=== PATIENT | female | born 1945 | race Caucasian/White ===

== ENCOUNTER 2020-08-15 10:07 | Outpatient (CLI) | payer MEDICARE, BC, SELFPAY ==
--- NOTE | ~2020-08-15 | US_ITS ---
EXAMINATION: US carotid duplex BI DATE: 08/15/2020 11:09 INDICATION: Carotid atherosclerosis and stenosis TECHNIQUE: Grayscale, color Doppler, and pulsed Doppler images of the cervical carotid arteries were obtained. The degree of vessel stenosis is placed in one of the following categories: normal, <50%, 5 0-69%, >=70% but less than near-occlusion, near-occlusion, or total occlusion. Note that percent sten osis relative to normal distal artery lumen diameter is indirectly measured from velocity measurement s as described by Gonzalez, et al. Radiology 2003; [id number]:340-346. COMPARISON: 08/12/2019 FINDINGS: RIGHT: The right common carotid artery (CCA) peak systolic velocity (PSV) is 74 cm/s. The right internal car otid artery (ICA) PSV is 216 cm/s. The right ICA end-diastolic velocity (EDV) is 55 cm/s. The right I CA/CCA PSV ratio is 2.9. Grayscale and color Doppler images yield an estimate of 50-69% diameter redu ction from plaque in the ICA. The external carotid artery (ECA) PSV is 137 cm/s. There is antegrade f low in the right vertebral artery. LEFT: The left CCA PSV is 77 cm/s. The left ICA PSV is 271 cm/s. The left ICA EDV is 73 cm/s. The left ICA/ CCA PSV ratio is 3.5. Grayscale and color Doppler images yield an estimate of >=70% (but less than ne ar occlusion) diameter reduction from plaque in the ICA. The ECA PSV is 139 cm/s. There is antegrade flow in the left vertebral artery. IMPRESSION: 1. 50-69% stenosis in the right internal carotid artery. 2. >=70% (but less than near occlusion) stenosis in the left internal carotid artery. Reviewed, dictated and finalized at location A. [employer] IMPRESSION: 1. 50-69% stenosis in the right internal carotid artery. 2. >=70% (but less than near occlusion) stenosis in the left internal carotid a rtery.
== END 2020-08-15 10:08 | disposition home or self-care (01) ==
LOC: ANHIMG 10:09
PROVIDERS: PCP Nurse Practitioner Family; Visit Provider Internal Medicine Cardiovascular Disease
DX: I65.23 Occlusion and stenosis of bilateral carotid arteries (principal)
CPT/HCPCS: 93880

== ENCOUNTER 2020-11-09 09:54 | Outpatient (CLI) | payer MEDICARE, BC, SELFPAY | END 2020-11-09 09:55 | disposition home or self-care (01) | LOC: ANHCOVIDVC 09:54 | PROVIDERS: PCP Nurse Practitioner Family | DX: Z23 Encounter for immunization (principal) | CPT/HCPCS: 0001A; 91300 ==

== ENCOUNTER 2020-11-30 09:43 | Outpatient (CLI) | payer MEDICARE, BC, SELFPAY | END 2020-11-30 09:44 | disposition home or self-care (01) | LOC: ANHCOVIDVC 09:43 | PROVIDERS: PCP Nurse Practitioner Family | DX: Z23 Encounter for immunization (principal) | CPT/HCPCS: 0002A; 91300 ==

== ENCOUNTER 2022-05-28 08:33 | Outpatient (CLI) | payer MEDICARE, BC, SELFPAY ==
[2022-05-28 20:31] LABS: Basophils Absolute Auto 0.1 K/mm3 (0.0-0.1); Basophils Percent Auto 0.9 % (0.2-1.2); Eosinophils Absolute Auto 0.5 K/mm3 (0-0.3); Hemoglobin 15.3 g/dL (12.0-15.0); Immature Granulocyte Absolute 0.04 K/mm3 (0.00-0.031); Immature Granulocyte Percent A 0.4 % (0-0.5); Lymphocytes Absolute Auto 2.95 K/mm3 (0.9-3.2); Lymphocytes Percent Auto 32.9 % (18.3-44.2); Mean Corpuscular HGB Conc 33.3 g/dl (32-36); Mean Corpuscular Hemoglobin 32.8 pg (26-34); Mean Corpuscular Volume 98.7 fl (80-100); Mean Platelet Volume 10.2 fl (7.4-10.4); Monocytes Absolute Auto 0.6 K/mm3 (0.1-0.6); Monocytes Percent Auto 6.1 % (2.6-8.5); Neutrophils Absolute Auto 4.8 K/mm3 (1.3-6.7); Neutrophils Percent Auto 53.7 % (45.5-73.1); Platelet Count Result 263 k/mm3 (150-375); Red Blood Count 4.66 M/mm3 (4.2-5.4); Red Cell Distribution Width 12.2 % (11.5-14.5)
[2022-05-28 20:48] LABS: Alanine Aminotransferase 20 U/L (6-35); Albumin Level 4.2 g/dL (3.5-5.1); Alkaline Phosphatase 70 U/L (38-126); Anion Gap 12 mmol/L (8-16); Aspartate Amino Transferase 45 U/L (14-36); Bilirubin,Total 0.7 mg/dL (0.2-1.3); Blood Urea Nitrogen 10 mg/dL (7-17); Carbon Dioxide 27 mmol/L (22-30); Chloride 105 mmol/L (98-107); Cholesterol 212 mg/dL (0-200); Estimated Glomerular Filt Rate 54; Glucose 118 mg/dL (65-110); HDL Direct 34 mg/dL; Potassium 3.6 mmol/L (3.4-5.0); Sodium 144 mmol/L (137-145); Triglycerides 191 mg/dL (<150)
[2022-05-28 20:58] LABS: LDL Cholesterol Direct 130 mg/dL
[2022-05-28 21:00] LABS: Hemoglobin A1C 6.1 % (<5.7)
== END 2022-05-28 08:34 | disposition home or self-care (01) ==
LOC: ANHGOSHLAB 08:39
PROVIDERS: PCP Family Medicine; Visit Provider Nurse Practitioner Family
DX: E78.5 Hyperlipidemia, unspecified (principal); I10 Essential (primary) hypertension; R73.03 Prediabetes
CPT/HCPCS: 36415; 80053; 80061; 83036; 85025

== ENCOUNTER 2022-06-12 13:43 | Outpatient (CLI) | payer MEDICARE, BC, SELFPAY ==
[2022-06-12 20:02] LABS: Potassium 3.1 mmol/L (3.4-5.0)
[2022-06-12 20:05] LABS: Alanine Aminotransferase 21 U/L (6-35); Albumin Level 4.7 g/dL (3.5-5.1); Alkaline Phosphatase 81 U/L (38-126); Anion Gap 17 mmol/L (8-16); Aspartate Amino Transferase 24 U/L (14-36); Bilirubin,Total 0.7 mg/dL (0.2-1.3); Blood Urea Nitrogen 14 mg/dL (7-17); Calcium 9.8 mg/dL (8.4-10.2); Carbon Dioxide 20 mmol/L (22-30); Chloride 108 mmol/L (98-107); Estimated Glomerular Filt Rate 48; Glucose 110 mg/dL (65-110); Sodium 145 mmol/L (137-145)
== END 2022-06-12 13:44 | disposition home or self-care (01) ==
PROVIDERS: PCP Family Medicine; Visit Provider Nurse Practitioner Family
DX: R74.01 Elevation of levels of liver transaminase levels (principal)
CPT/HCPCS: 36415; 80053

== ENCOUNTER 2022-06-25 12:02 | Outpatient (CLI) | payer MEDICARE, BC, SELFPAY ==
[2022-06-25 20:29] LABS: Anion Gap 11 mmol/L (8-16); Blood Urea Nitrogen 14 mg/dL (7-17); Calcium 9.8 mg/dL (8.4-10.2); Carbon Dioxide 25 mmol/L (22-30); Chloride 107 mmol/L (98-107); Estimated Glomerular Filt Rate 48; Glucose 124 mg/dL (65-110); Potassium 3.6 mmol/L (3.4-5.0); Sodium 143 mmol/L (137-145)
== END 2022-06-25 12:03 | disposition home or self-care (01) ==
LOC: ANHGOSHLAB 12:04
PROVIDERS: PCP Family Medicine; Visit Provider Nurse Practitioner Family
DX: E87.6 Hypokalemia (principal)
CPT/HCPCS: 36415; 80048

== ENCOUNTER 2022-11-30 08:12 | Outpatient (CLI) | payer MEDICARE, SELFPAY ==
[2022-11-30 19:08] LABS: Basophils Absolute Auto 0.1 K/mm3 (0.0-0.1); Basophils Percent Auto 0.8 % (0.2-1.2); Eosinophils Absolute Auto 0.5 K/mm3 (0-0.3); Eosinophils Percent Auto 5.3 % (0-4.4); Hematocrit 45.6 % (37.0-47.0); Immature Granulocyte Absolute 0.04 K/mm3 (0.00-0.031); Immature Granulocyte Percent A 0.5 % (0-0.5); Lymphocytes Absolute Auto 3.06 K/mm3 (0.9-3.2); Lymphocytes Percent Auto 35.8 % (18.3-44.2); Mean Corpuscular HGB Conc 32.9 g/dl (32-36); Mean Corpuscular Hemoglobin 32.7 pg (26-34); Mean Corpuscular Volume 99.3 fl (80-100); Mean Platelet Volume 10.7 fl (7.4-10.4); Monocytes Absolute Auto 0.5 K/mm3 (0.1-0.6); Monocytes Percent Auto 6.1 % (2.6-8.5); Neutrophils Absolute Auto 4.4 K/mm3 (1.3-6.7); Neutrophils Percent Auto 51.5 % (45.5-73.1); Platelet Count Result 236 k/mm3 (150-375); Red Blood Count 4.59 M/mm3 (4.2-5.4); Red Cell Distribution Width 12.1 % (11.5-14.5); White Blood Count 8.5 K/mm3 (4.5-10.0)
[2022-11-30 19:10] LABS: Chloride 106 mmol/L (98-107)
[2022-11-30 19:15] LABS: Alanine Aminotransferase 20 U/L (6-35); Albumin Level 4.4 g/dL (3.5-5.1); Alkaline Phosphatase 63 U/L (38-126); Anion Gap 9 mmol/L (8-16); Aspartate Amino Transferase 23 U/L (14-36); Bilirubin,Total 0.9 mg/dL (0.2-1.3); Blood Urea Nitrogen 12 mg/dL (7-17); Calcium 9.6 mg/dL (8.4-10.2); Carbon Dioxide 28 mmol/L (22-30); Cholesterol 170 mg/dL (0-200); Estimated Glomerular Filt Rate 48; Glucose 96 mg/dL (65-110); HDL Direct 39 mg/dL; Sodium 143 mmol/L (137-145); Triglycerides 169 mg/dL (<150)
[2022-11-30 19:21] LABS: LDL Cholesterol Direct 94 mg/dL
[2022-11-30 19:37] LABS: Hemoglobin A1C 6.2 % (<5.7)
[2022-11-30 19:40] LABS: Thyroid Stimulating Hormone 0.494 uIU/mL (0.465-4.680)
[2022-11-30 20:19] LABS: MALB Creatinine Ratio 186.9 mg/g (0-30); Microalbumin Urine Random 226.1 mg/L (0-16.7)
[2022-11-30 20:20] LABS: Vitamin D 25 Hydroxy > 126.0 ng/mL
== END 2022-11-30 08:13 | disposition home or self-care (01) ==
LOC: ANHGOSHLAB 08:14
PROVIDERS: PCP Family Medicine; Visit Provider Nurse Practitioner Family
DX: E55.9 Vitamin D deficiency, unspecified (principal); E78.5 Hyperlipidemia, unspecified; E11.9 Type 2 diabetes mellitus without complications; I10 Essential (primary) hypertension
CPT/HCPCS: 36415; 80053; 80061; 82043; 82306; 83036; 84443; 85025